=== PATIENT | female | born 1975 | race Caucasian/White ===

== ENCOUNTER 2025-01-31 20:08 | Emergency (ER) | payer BC ==
[~2025-01-31] VITALS: Ht 160 cm; Wt 56.7 kg
[2025-01-31 20:32] VITALS: BP 118/87
[2025-01-31 21:07] LABS: *BILIRUBIN,URIN NEGATIVE (NEGATIVE); *CLARITY,URINE CLEAR (CLEAR); *COLOR,URINE YELLOW (YELLOW); *KETONES,URINE NEGATIVE (NEGATIVE); *PROTEIN,URINE NEGATIVE (NEGATIVE); *UROBILINOGEN,URINE 0.2 E.U./dl (NORMAL); LEUKOCYTE ESTERASE ,URINE NEGATIVE (NEGATIVE); NITRITE, URINE NEGATIVE (NEGATIVE); UGLUCOSE NEGATIVE (NEGATIVE)
[2025-01-31 21:09] LABS: *BLOOD, URINE TRACE (NEGATIVE)
[2025-01-31 21:16] LABS: *URINE HCG, QUAL NEGATIVE (NEGATIVE)
[2025-01-31 21:24] LABS: SQUAMOUS EPITHELIAL CELL,UR FEW /HPF (NONE SEEN)
[2025-01-31 21:50] VITALS: BP 115/82; O2SAT 99
== END 2025-01-31 21:46 | disposition home or self-care (01) ==
LOC: ER 20:08
DX: R30.0 Dysuria (principal); R35.0 Frequency of micturition; R10.9 Unspecified abdominal pain
CPT/HCPCS: 84703; 87086; A4606; A4663